=== PATIENT | male | born 1990 | race Two or more races ===

== ENCOUNTER 2022-12-15 03:31 | Emergency (ER) | payer MEDICAID, OTHER ==
[~2022-12-15] VITALS: Ht 170.2 cm; Wt 91.8 kg
[2022-12-15] MEDS ORDERED: CYCL-837 PO (04:46)
[2022-12-15] MEDS ORDERED: IBUP800T27 PO (04:46)
[2022-12-15] MEDS ORDERED: KETOROLAC TROMETH 60MG/2ML VIAL IM ONE (05:00)
[2022-12-15 05:01] VITALS: BP 123/78
== END 2022-12-15 05:25 | disposition home or self-care (01) ==
LOC: ER 03:31
DX: S16.1XXA Strain of muscle, fascia and tendon at neck level, initial encounter (principal); S29.012A Strain of muscle and tendon of back wall of thorax, initial encounter; R51.9 Headache, unspecified; V49.9XXA Car occupant (driver) (passenger) injured in unspecified traffic accident, initial encounter; Y93.89 Activity, other specified; Y92.413 State road as the place of occurrence of the external cause; Y99.8 Other external cause status
CPT/HCPCS: 70450; 72125; 72128; 96372; 99285; J1885